=== PATIENT | male | born 1980 | race Caucasian/White ===

== ENCOUNTER 2017-01-30 23:46 | Emergency (ER) | payer OTHER ==
[~2017-01-30] VITALS: Ht 182.9 cm; Wt 87.0 kg
[2017-01-30 23:47] VITALS: BP 124/76
== END 2017-01-31 00:39 | disposition home or self-care (01) ==
LOC: ED 23:59
DX: H60.92 Unspecified otitis externa, left ear (principal); Z98.890 Other specified postprocedural states
CPT/HCPCS: 99283